=== PATIENT | male | born 1960 | race Caucasian/White ===

== ENCOUNTER 2016-12-25 18:16 | Emergency (ER) ==
[2016-12-25] MEDS ORDERED: ALCAINE 0.5% OPHTH SOLN BOTH EYES ONE (19:50)
[2016-12-25] MEDS ORDERED: FLUORI-I-STRIP OPH ONE (19:52)
--- NOTE | 2016-12-25 20:05 | PROVIDER DOCUMENTATION ---
HPI-EENT General <Dariel Pimentel EfeLouann - Last Filed: 12/25/16 20:09> - General Source: patient - History of Present Illness-EENT General EENT Location: reports: eye (R), eye (L) Quality of Pain: reports: burning Severity: reports: mild Onset/Duration: reports: 1-3 hours ago Timing: reports: still present Locality of Occurance: Home Similar Symptoms Previously?: No Recently seen or treated by another doctor?: No - Eyes Eye Problem Symptoms: reports: burning, redness Apparent Injury?: No Eye Problem Context: reports: exposure to welding arc Eyes washed at the scene?: No <Lexy Burns - Last Filed: 12/25/16 20:12> - General Chief Complaint: Eye Complaint Stated Complaint: @1600 EYES COMPLAINT Time Seen by Provider: 12/25/16 19:49 Allergies/Adverse Reactions: Patient Allergies Allergy/AdvReac Type Severity Reaction Status Date / Time No Known Allergies Allergy Verified 12/25/16 20:06 Home Medications: Home Medication List Medication Instructions Recorded Confirmed Last Taken Type SIMVAstatin [Zocor] 40 mg PO QHS 01/14/13 12/25/16 09/01/15 20:00 History Atenolol [Tenormin] 50 mg PO BID 06/25/13 12/25/16 12/25/16 History Hydrocodone/Acetaminophen [Everett 1 each PO Q4-6H PRN PRN #12 tablet 12/25/16 Unknown Rx 5-325 Tablet] Insulin Glargine [Lantus] 28 unit SUBQ QHS 12/25/16 12/25/16 12/24/16 History - History of Present Illness-EENT General Nature of Presenting Problem: 56 year old M presents to the ED with a cc of bilateral eye burning. 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 (Lexy Burns) Review of Systems - Adult - REVIEW OF SYSTEMS - ADULT Constitutional: denies: chills, fever Eyes: reports: eye pain. denies: blurred vision Ears, Nose, Mouth & Throat: denies: ear pain, loose teeth Cardiovascular: denies: chest pain, palpitations Respiratory: reports: no symptoms reported Gastrointestinal: reports: no symptoms reported Genitourinary: reports: no symptoms reported Musculoskeletal: reports: no symptoms reported Integumentary: reports: no symptoms reported Neurological: reports: no symptoms reported Psychiatric: reports: no symptoms reported Endocrine: reports: no symptoms reported Hematologic/Lymphatic: reports: no symptoms reported Allergic/Immunologic: reports: no symptoms reported All Other Systems: Reviewed and Negative <Lexy Burns - Last Filed: 12/25/16 20:12> Past History - Adult - PAST MEDICAL HISTORY-ADULT Review of Records: reports: Nursing Assessment Review, Medications Reviewed Major Childhood Illnesses: reports: denies history Cardiovascular: reports: denies history Respiratory: reports: denies history Gastrointestinal: reports: denies history Obstetrical/Gynecological: reports: denies history Genitourinary: reports: denies history Musculoskeletal: reports: denies history Neurological: reports: denies history Endocrine/Immune: reports: Diabetes Other Conditions: reports: denies history - PRIOR SURGERIES/PROCEDURES Surgical/Procedure History: reports: none - IMMUNIZATION STATUS Childhood Immunizations: See Nurse Assessment Flu Vaccine: See Nurse Assessment - FAMILY HISTORY Family History: reviewed, not pertinent - SOCIAL HISTORY Smoking: cigarettes Provider spent 3-5 mins advising pt. on dangers of tobacco.: Discussed manners to quit use, and f/u contacts for add'l counseling. Substance Use: none/never Alcohol Use Frequency: occasionally <Lexy Burns - Last Filed: 12/25/16 20:12> Physical Exam- EENT - Physical Exam EENT Initial Vital Signs Reviewed: Yes General Appearance: appears well, alert, no apparent distress Respiratory: no respiratory distress Cardiovascular: regular rate, rhythm Integumentary: normal color, normal turgor, warm/dry Psych/Mental Status: normal mood/affect, normal thought content, normal thought process, oriented x 3 <Lexy Burns - Last Filed: 12/25/16 20:12> Progress <Dariel Pimentel - Last Filed: 12/25/16 20:09> <Lexy Burns - Last Filed: 12/25/16 20:12> - PLAN OF CARE/RESULTS Progress/Plan/Lab Results: plan of care: eye exam Orders Category Date Time Status Fluorescein Strip [[id number]] Med 12/25/16 19:52 Discontinued 1 each OPH NOW ONE Hydrocodone/APAP 7.5 mg/325 mg [Everett-7.5] Med 12/25/16 20:08 Discontinued 1 each PO NOW ONE Ketorolac 0.5% Ophth Soln [Acular 0.5% Ophth Soln] Med 12/25/16 20:09 Discontinued 1 ml BOTH EYES NOW ONE Proparacaine 0.5% Ophth Soln [Alcaine 0.5% Ophth Soln] Med 12/25/16 19:50 Discontinued 1 ml BOTH EYES NOW ONE Vital Signs - 24 hr 12/25/16 18:26 Temperature 98.1 F Pulse Rate 65 Respiratory 18 Rate Blood Pressure 147/79 O2 Sat by Pulse 98 Oximetry Pt given results and will be d/c home w/ rx to follow up with PCP. Pt verbally understood instructions. PT remained clinically stable throughout the course of the ED stay and will return if symptoms worsen. (Lexy Burns) Departure - Departure Time of Disposition Order: 20:09 Certified Medical Emergency: Emergent <Dariel Pimentel - Last Filed: 12/25/16 20:09> <Lexy Burns - Last Filed: 12/25/16 20:12> - Departure DIAGNOSIS: UV keratitis Qualifiers: Laterality: bilateral Qualified Code(s): H16.133 - Photokeratitis, bilateral Disposition: HOME 01 Additional Instructions: ED Follow Up Instructions: You have been treated by a care provider in the Emergency Department. These instructions are being provided to you so you can have an understanding of how to care for yourself upon discharge. Upon discharge from the Emergency Department, you are responsible for making arrangements for follow-up care by a physician of your choice. Take all prescribed medications as directed. Return to the Emergency Department immediately for any new or worsening symptoms. You may call the Physician Referral phone number at [phone] to obtain a list of Physicians who are taking new patients. Prescriptions: Hydrocodone/Acetaminophen [Everett 5-325 Tablet] 1 each PO Q4-6H PRN PRN #12 tablet PRN Reason: Pain Referrals: Vonda Hartman MD [Primary Care Provider] - Attestation - Scribe Verification/Attestation Scribe:: Lexy Burns Acting as Scribe for:: Dariel Pimentel Scribe documention review:: This chart was documented by a scribe and accurately reflects the service the provider performed and the decisions made by the provider. <Lexy Burns - Last Filed: 12/25/16 20:12> Physician Attestation
[2016-12-25] MEDS ORDERED: NORCO-7.5 PO ONE (20:08)
[2016-12-25] MEDS ORDERED: ACULAR 0.5% BOTH EYES ONE (20:09)
[2016-12-25 20:41] VITALS: BP 131/81
== END 2016-12-25 20:41 | disposition home or self-care (01) ==
LOC: ED 18:16
DX: H16.133 Photokeratitis, bilateral (principal); H57.13 Ocular pain, bilateral; E11.9 Type 2 diabetes mellitus without complications; F17.210 Nicotine dependence, cigarettes, uncomplicated; Z79.4 Long term (current) use of insulin; Z79.899 Other long term (current) drug therapy; Z71.6 Tobacco abuse counseling; W89.0XXA Exposure to welding light (arc), initial encounter